=== PATIENT | male | born 1990 | race Caucasian/White ===

== ENCOUNTER 2017-03-11 07:57 | Inpatient (IN) | payer SELFPAY ==
[~2017-03-11] VITALS: Ht 193 cm; Wt 175.3 kg
--- NOTE | ~2017-03-11 | CON ---
[place], [place] REPORT OF CONSULTATION NAME: LAUREN HUBBARD UNIT #: [id number] ROOM: 426 DOCTOR: ROSEMARIE VICKERS MD BIRTHDATE: [birth year] DOS: 03/11/2017 REASON FOR CONSULTATION: Parapharyngeal space infection and inflammation. HISTORY OF PRESENT ILLNESS: The patient is a 26-year-old white male who presented to the Emergency Department at [facility] early this morning complaining of sore throat with throat swelling. He states that over the past 2 weeks, he has had intermittent discomfort. Over the past 24 hours, he has noticed increased swelling and pain with difficulty swallowing. He has also had some right-sided ear pain, right-sided oral cavity pain. The patient was noted to have a white blood cell count of 14,000 on presentation. He has been treated in the Emergency Department with 1 g of Rocephin and 600 mg of IV clindamycin. CT scan of the soft tissues of the neck performed in the Emergency Department showed abnormal significant parapharyngeal soft tissue thickening in the oropharynx on the right side. Second region of abnormal parapharyngeal soft tissue thickening was noted at the level of the right area epiglottis full. The patient had large right neck lymph node and prominent right submandibular gland. I have reviewed this studies and my impression is suggestive of a diffuse infectious process with significant inflammation, neoplastic process is doubtful. The patient will be admitted to the hospitalist service on IV antibiotics and he will be clinically followed by ENT. There is no drainable fluid collection and no indication for surgical intervention at this time. PAST MEDICAL HISTORY: History of bronchiolitis, history of ear infections with tympanostomy tube placement, history of distal fibular shaft fracture and history of pneumonia. PAST SURGICAL HISTORY: BMT. CURRENT MEDICATIONS: Include clindamycin, Zofran, Toradol, Decadron and Rocephin. ALLERGIES: He has no known drug allergies. PHYSICAL EXAMINATION: VITAL SIGNS: The patient is afebrile, temperature 98 oral, pulse 90, respiratory rate 16, blood pressure 142/82, and pulse oximetry 97% on room air. HEENT: Exam of the oral cavity and oropharynx shows grade 3+ tonsillar hypertrophy bilaterally with erythema and slight exudate. There is peritonsillar cellulitis and inflammation. NECK: Shows lymphadenopathy in the right mid cervical region. Nose is clear. Ears clear. HEART: Regular rate and rhythm. LUNGS: Clear to auscultation. IMPRESSION: 1. Bilateral tonsillitis. 2. Right parapharyngeal space inflammation. PLAN: At this point, there is no indication for surgical intervention. [place], [place] REPORT OF CONSULTATION NAME: LAUREN HUBBARD UNIT #: [id number] ROOM: 426 DOCTOR: ROSEMARIE VICKERS MD BIRTHDATE: [birth year] RECOMMENDATIONS: I agree with admission to hospitalist service would recommend continued IV antibiotic therapy. In addition, the patient would benefit from a brief burst of IV steroids such as Solu-Medrol 80 mg IV q.8 hours x 3. ENT will follow this patient clinically during this hospitalization. I have suggested to family that following recovery from this acute infectious process the patient should be evaluated and considered for bilateral tonsillectomy. ROSEMARIE VICKERS MD CM:CONSTR:REPORT OF CONSULTATION 1106 03/11/17 [id number] interface
[~2017-03-11 07:57] MED LIST: DARVOCET N 1001 TAB PO; KENALOG0.1% TP; MOTRIN800 MG PO
[2017-03-11 08:08] VITALS: BP 142/82
[2017-03-11] MEDS ORDERED: CLARITIN10 M1 PO (08:09)
[2017-03-11 08:32] LABS: BASO # 0.1 10*3/uL (0.0-0.1); BASO % 0.4 % (0.0-1.0); EOS # 0.2 10*3/uL (0.0-0.4); EOS % 1.6 % (1.0-4.0); HEMATOCRIT 46.4 % (42.0-52.0); HEMOGLOBIN 15.7 g/dl (14.0-18.0); IG # 0.1 10*3/uL (0.0-0.1); LYMPH # 1.7 10*3/uL (1.3-4.4); LYMPH % 12.1 % (27.0-41.0); MEAN CELL VOLUME 86.7 fl (80.0-94.0); MEAN CORPUSCULAR HGB 29.3 pg (27.0-31.0); MEAN CORPUSCULAR HGB CONC 33.8 g/dl (33.0-37.0); MEAN PLATELET VOLUME 10.8 fl (9.6-12.3); MONO # 1.3 10*3/uL (0.1-1.0); MONO % 9.5 % (3.0-9.0); NEUT # 10.7 10*3/uL (2.3-7.9); PLATELET COUNT AUTOMATED 253 10*3/uL (130-400); RED BLOOD COUNT 5.35 10*6/uL (4.50-5.90); RED CELL DISTRI WIDTH 12.2 % (0-14.5)
[2017-03-11 08:47] LABS: ALBUMIN 3.7 gm/dl (3.1-4.5); ALKALINE PHOSPHATASE 93 U/L (45-117); BILIRUBIN, TOTAL 0.8 mg/dl (0.2-1.0); BUN 10 mg/dl (7-24); C-REACTIVE PROTEIN 3.07 MG/DL (0-0.3); CARBON DIOXIDE 27 mmol/L (21-32); CHLORIDE 104 mmol/L (98-107); EST GLOM FILT AFRICAN AMERICAN > 60 ml/min; GLUCOSE 108 mg/dL (65-99); MAGNESIUM 2.2 mg/dL (1.5-2.1); POTASSIUM 3.9 mmol/L (3.5-5.1); SGOT/AST 17 IU/L (3-35); SGPT/ALT 41 U/L (12-78); SODIUM 139 mmol/L (136-145); TOTAL PROTEIN 8.1 gm/dL (6.4-8.2)
[2017-03-11 11:15] VITALS: BP 158/96
[2017-03-11 12:00] VITALS: BP 158/96
[2017-03-11 16:00] VITALS: BP 118/64
[2017-03-11 20:00] VITALS: BP 140/58
[2017-03-12] VITALS: BP 128/44
[2017-03-12 06:44] LABS: HEMATOCRIT 42.1 % (42.0-52.0); HEMOGLOBIN 14.2 g/dl (14.0-18.0); MEAN CELL VOLUME 88.1 fl (80.0-94.0); MEAN CORPUSCULAR HGB 29.7 pg (27.0-31.0); MEAN CORPUSCULAR HGB CONC 33.7 g/dl (33.0-37.0); MEAN PLATELET VOLUME 11.5 fl (9.6-12.3); PLATELET COUNT AUTOMATED 263 10*3/uL (130-400); RED BLOOD COUNT 4.78 10*6/uL (4.50-5.90); WHITE BLOOD COUNT 18.6 10*3/uL (4.8-10.8)
[2017-03-12 07:01] LABS: BUN 11 mg/dl (7-24); CARBON DIOXIDE 25 mmol/L (21-32); CHLORIDE 107 mmol/L (98-107); CHOLESTEROL 166 mg/dL (<200); EST GLOM FILT AFRICAN AMERICAN > 60 ml/min; FREE T4 1.11 ng/dl (0.76-1.46); GLUCOSE 145 mg/dL (65-99); HDL CHOLESTEROL 52 mg/dl (40-60); LDL CHOLESTEROL 99 mg/dL (9-159); POTASSIUM 4.2 mmol/L (3.5-5.1); SODIUM 140 mmol/L (136-145); TRIGLYCERIDES 74 mg/dl (<150); VLDL CHOLESTEROL 15 mg/dL (6-40)
[2017-03-12 07:06] LABS: THYROID STIM HORMONE (HS) 0.839 uIU/ml (0.358-4.75)
[2017-03-12 07:12] LABS: LYMPHOCYTE # 1.1 10*3/uL (1.3-4.4); NEUTROPHIL # 17.5 10*3/uL (2.3-7.9); NEUTROPHILS 94 % (47-73); TOTAL CELLS COUNTED 100 #CELLS
[2017-03-12 07:13] LABS: PLATELET SUFFICIENCY NORMAL (NORMAL); TOXIC GRANULATION SLIGHT
[2017-03-12 07:24] LABS: HEMOGLOBIN A1c 5.3 % (4.8-5.6)
[2017-03-12 07:59] LABS: VITAMIN D, 25-HYDROXY 6.9 ng/mL (30-100)
[2017-03-12 08:00] VITALS: BP 115/54
[2017-03-12 12:00] VITALS: BP 152/64
[2017-03-12 16:00] VITALS: BP 130/58
[2017-03-12 20:00] VITALS: BP 145/76
[2017-03-13] VITALS: BP 140/63
[2017-03-13 08:00] VITALS: BP 136/79
[2017-03-13 12:00] VITALS: BP 142/74
[2017-03-13] MEDS ORDERED: AUGMENTIN 875875 MG PO (15:43)
[2017-03-13] MEDS ORDERED: VITAMIN D50000 I3 PO (15:43)
[2017-03-13 16:00] VITALS: BP 131/73
== END 2017-03-13 18:30 | disposition home or self-care (01) | DRG 872 ==
LOC: ED 07:57 → EDHOLD 10:29 → 4E 10:29
PROVIDERS: Emergency Medicine; Internal Medicine
DX: A41.9 Sepsis, unspecified organism (principal); Z68.42 Body mass index [BMI] 45.0-49.9, adult; F17.210 Nicotine dependence, cigarettes, uncomplicated; J03.90 Acute tonsillitis, unspecified; E66.01 Morbid (severe) obesity due to excess calories; Z79.899 Other long term (current) drug therapy